=== PATIENT | female | born 1995 | race Caucasian/White ===

== ENCOUNTER 2018-05-18 16:05 | Emergency (ER) | payer BC ==
[2018-05-18] MEDS ORDERED: SODIUM CHLORIDE 0.9% 1,000 ML IV STA ×2 (16:34)
[2018-05-18] MEDS ORDERED: PYRIDOXINE 100 MG/ML 1 ML VIAL IVP STA (16:34)
[2018-05-18 16:59] LABS: Basophils % (A) 0 %; Eosinophils # (A) 0.1 k/uL (0-0.7); Eosinophils % (A) 1 %; HCT 38.2 % (34.0-46.0); HGB 13.1 gm/dL (11.4-16.0); Lymphocytes # (A) 1.4 k/uL (1.0-4.8); Lymphocytes % (A) 13 %; MCH 28.3 pg (25.0-35.0); MCHC 34.3 g/dL (31.0-37.0); MCV 82.5 fL (80.0-100.0); Mean Platelet Volume 7.3; Monocytes # (A) 0.6 k/uL (0-1.0); Monocytes % (A) 5 %; Neutrophils # (A) 8.9 k/uL (1.3-7.7); Neutrophils % (A) 80 %; Platelet Count 297 k/uL (150-450); RBC 4.63 m/uL (3.80-5.40); WBC 11.1 k/uL (3.8-10.6)
--- NOTE | 2018-05-18 17:00 | ED ---
General Adult HPI - General Chief complaint: Nausea/Vomiting/Diarrhea Stated complaint: Vomiting Time Seen by Provider: 05/18/18 16:13 Source: patient, RN notes reviewed, old records reviewed Mode of arrival: ambulatory Limitations: no limitations - History of Present Illness Initial comments: 23-year-old female presents emergency Department chief complaint of vomiting for the past 3 days. She reports that she took a positive test earlier this week. Patient states that she's had no medical Reason that she is . Patient reports is her first . Last menstrual period was in the beginning of March. She denies any fever or chills. Shortness is had some minor left-sided abdominal pain. No vaginal bleeding. She reports that she's had no chest pain, shortness of breath. Normal stools. Parents been normal. She states she feels somewhat lightheaded. - Related Data Previous Rx's Medication Instructions Recorded Cyclobenzaprine [Flexeril] 10 mg PO TID #12 tab 12/31/16 Diazepam [Valium] 2 mg PO BID #8 tab 12/31/16 Ibuprofen [Motrin] 600 mg PO Q6HR PRN #20 tab 12/31/16 Metoclopramide [Reglan] 5 mg PO ACHS #10 tab 05/18/18 [id number]-[id number]-Hmfbf Acid 1 cap PO DAILY #30 cap 05/18/18 [-U Capsule (formulary)] Allergies Allergy/AdvReac Type Severity Reaction Status Date / Time No Known Allergies Allergy Verified 05/18/18 16:12 Review of Systems ROS Statement: Those systems with pertinent positive or pertinent negative responses have been documented in the HPI. ROS Other: All systems not noted in ROS Statement are negative. Past Medical History Past Medical History: No Reported History History of Any Multi-Drug Resistant Organisms: None Reported Past Surgical History: No Surgical Hx Reported Past Psychological History: No Psychological Hx Reported Smoking Status: Never smoker Past Alcohol Use History: None Reported Past Drug Use History: None Reported General Exam - General Exam Comments Initial Comments: Well-appearing 23-year-old female. Alert and oriented. No acute distress. Limitations: no limitations General appearance: alert, in no apparent distress Head exam: Present: atraumatic, normocephalic, normal inspection Eye exam: Present: normal appearance, PERRL, EOMI. Absent: scleral icterus, conjunctival injection, periorbital swelling ENT exam: Present: normal exam, mucous membranes moist Neck exam: Present: normal inspection. Absent: tenderness, meningismus, lymphadenopathy Respiratory exam: Present: normal lung sounds bilaterally. Absent: respiratory distress, wheezes, rales, rhonchi, stridor Cardiovascular Exam: Present: regular rate, normal rhythm, normal heart sounds. Absent: systolic murmur, diastolic murmur, rubs, gallop, clicks GI/Abdominal exam: Present: soft, tenderness (Minimal Left lower quadrant tenderness.), normal bowel sounds. Absent: distended, guarding, rebound, rigid Extremities exam: Present: normal inspection, full ROM, normal capillary refill. Absent: tenderness, pedal edema, joint swelling, calf tenderness Back exam: Present: normal inspection Neurological exam: Present: alert, oriented X3, CN II-XII intact Psychiatric exam: Present: normal affect, normal mood Skin exam: Present: warm, dry, intact, normal color. Absent: rash Course Vital Signs 05/18/18 05/18/18 05/18/18 16:10 17:38 18:54 Temperature 98.3 F 98.5 F Pulse Rate 55 L 80 76 Respiratory 20 18 18 Rate Blood Pressure 137/81 127/70 113/76 O2 Sat by Pulse 98 99 98 Oximetry 05/18/18 19:10 Temperature Pulse Rate 59 L Respiratory 15 Rate Blood Pressure 127/58 O2 Sat by Pulse 98 Oximetry Medical Decision Making - Medical Decision Making 23-year-old female with history of recent diagnosis of presents with 3 days of nausea and vomiting. Patient's hCG level LXV,000. This is consistent with where her last syncope. Ultrasound was completed and shows an IUP of 5 weeks and 6 days. No other, kidney factors. Patient is follow-up positive blood type. Patient's labwork was otherwise unremarkable. The second Patient be discharged with close follow-up with IT SENIOR SOFTWARE ENGINEER JAVA. Discussed and discharge her with prescription for Diclegis and Reglan. All questions answered return parameters were discussed. - Lab Data Result diagrams: 05/18/18 16:34 05/18/18 16:34 Lab Results 05/18/18 05/18/18 05/18/18 Range/Units 16:34 16:34 16:34 WBC 11.1 H (3.8-10.6) k/uL RBC 4.63 (3.80-5.40) m/uL Hgb 13.1 (11.4-16.0) gm/dL Hct 38.2 (34.0-46.0) % MCV 82.5 (80.0-100.0) fL MCH 28.3 (25.0-35.0) pg MCHC 34.3 (31.0-37.0) g/dL RDW 14.0 (11.5-15.5) % Plt Count 297 (150-450) k/uL Neutrophils % 80 % Lymphocytes % 13 % Monocytes % 5 % Eosinophils % 1 % Basophils % 0 % Neutrophils # 8.9 H (1.3-7.7) k/uL Lymphocytes # 1.4 (1.0-4.8) k/uL Monocytes # 0.6 (0-1.0) k/uL Eosinophils # 0.1 (0-0.7) k/uL Basophils # 0.0 (0-0.2) k/uL Sodium 140 (137-145) mmol/L Potassium 4.1 (3.5-5.1) mmol/L Chloride 105 (98-107) mmol/L Carbon Dioxide 22 (22-30) mmol/L Anion Gap 13 mmol/L BUN 9 (7-17) mg/dL Creatinine 0.50 L (0.52-1.04) mg/dL Est GFR (CKD-EPI)AfAm >90 (>60 ml/min/1.73 sqM) Est GFR (CKD-EPI)NonAf >90 (>60 ml/min/1.73 sqM) Glucose 95 (74-99) mg/dL Calcium 9.4 (8.4-10.2) mg/dL Total Bilirubin 0.4 (0.2-1.3) mg/dL AST 25 (14-36) U/L ALT 33 (9-52) U/L Alkaline Phosphatase 72 (38-126) U/L Total Protein 7.2 (6.3-8.2) g/dL Albumin 4.3 (3.5-5.0) g/dL Amylase 34 (30-110) U/L Lipase 53 (23-300) U/L HCG, Quant 45810.3 mIU/mL Urine Color Yellow Urine Appearance Turbid H (Clear) Urine pH 6.0 (5.0-8.0) Ur Specific [place] 1.031 (1.001-1.035) Urine Protein 2+ H (Negative) Urine Glucose (UA) Negative (Negative) Urine Ketones 4+ H (Negative) Urine Blood Moderate H (Negative) Urine Nitrite Negative (Negative) Urine Bilirubin 1+ H (Negative) Urine Urobilinogen 3.0 (<2.0) mg/dL Ur Leukocyte Esterase Large H (Negative) Urine RBC 17 H (0-5) /hpf Urine WBC 19 H (0-5) /hpf Ur Squamous Epith Cells 18 H (0-4) /hpf Amorphous Sediment Rare H (None) /hpf Urine Bacteria Few H (None) /hpf Urine Mucus Many H (None) /hpf Blood Type Blood Type Recheck 05/18/18 Range/Units 18:24 WBC (3.8-10.6) k/uL RBC (3.80-5.40) m/uL Hgb (11.4-16.0) gm/dL Hct (34.0-46.0) % MCV (80.0-100.0) fL MCH (25.0-35.0) pg MCHC (31.0-37.0) g/dL RDW (11.5-15.5) % Plt Count (150-450) k/uL Neutrophils % % Lymphocytes % % Monocytes % % Eosinophils % % Basophils % % Neutrophils # (1.3-7.7) k/uL Lymphocytes # (1.0-4.8) k/uL Monocytes # (0-1.0) k/uL Eosinophils # (0-0.7) k/uL Basophils # (0-0.2) k/uL Sodium (137-145) mmol/L Potassium (3.5-5.1) mmol/L Chloride (98-107) mmol/L Carbon Dioxide (22-30) mmol/L Anion Gap mmol/L BUN (7-17) mg/dL Creatinine (0.52-1.04) mg/dL Est GFR (CKD-EPI)AfAm (>60 ml/min/1.73 sqM) Est GFR (CKD-EPI)NonAf (>60 ml/min/1.73 sqM) Glucose (74-99) mg/dL Calcium (8.4-10.2) mg/dL Total Bilirubin (0.2-1.3) mg/dL AST (14-36) U/L ALT (9-52) U/L Alkaline Phosphatase (38-126) U/L Total Protein (6.3-8.2) g/dL Albumin (3.5-5.0) g/dL Amylase (30-110) U/L Lipase (23-300) U/L HCG, Quant mIU/mL Urine Color Urine Appearance (Clear) Urine pH (5.0-8.0) Ur Specific [place] (1.001-1.035) Urine Protein (Negative) Urine Glucose (UA) (Negative) Urine Ketones (Negative) Urine Blood (Negative) Urine Nitrite (Negative) Urine Bilirubin (Negative) Urine Urobilinogen (<2.0) mg/dL Ur Leukocyte Esterase (Negative) Urine RBC (0-5) /hpf Urine WBC (0-5) /hpf Ur Squamous Epith Cells (0-4) /hpf Amorphous Sediment (None) /hpf Urine Bacteria (None) /hpf Urine Mucus (None) /hpf Blood Type O Positive Blood Type Recheck No - Radiology Data Radiology results: report reviewed Cardiac flicker was observed but cannot be measured. Ultrasound gestational is 5 weeks and 6 days. gait process. Disposition Clinical Impression: Nausea & vomiting, 5 weeks gestation of Disposition: HOME SELF-CARE Condition: Good Instructions: Nausea and Vomiting in (ED) Additional Instructions: Patient should rest, clear liquids. Follow-up with IT SENIOR SOFTWARE ENGINEER JAVA. Return to emergency department if any alarming signs or symptoms occur. Prescriptions: Metoclopramide [Reglan] 5 mg PO ACHS #10 tab Une-[id number]-Oxwjg Acid [-U Capsule (formulary)] 1 cap PO DAILY # 30 cap Is patient prescribed a controlled substance at d/c from ED?: No When asked, does pt state using other controlled substances?: No If prescribed controlled substance>3 days was MAPS reviewed?: No If opioid is for acute pain is fill amount 7 days or less?: No If Rx opioid, was Start Talking consent form obtained?: No Referrals: None,Stated [Primary Care Provider] - 1-2 days Yudy Woods MD [STAFF PHYSICIAN] - 1-2 days Time of Disposition: 20:15
[2018-05-18 17:10] LABS: ALT 33 U/L (9-52); AST 25 U/L (14-36); Albumin 4.3 g/dL (3.5-5.0); Alkaline Phosphatase 72 U/L (38-126); Amylase 34 U/L (30-110); Anion Gap 13 mmol/L; Blood Urea Nitrogen 9 mg/dL (7-17); Calcium 9.4 mg/dL (8.4-10.2); Carbon Dioxide 22 mmol/L (22-30); Chloride 105 mmol/L (98-107); Glucose 95 mg/dL (74-99); Lipase 53 U/L (23-300); Potassium 4.1 mmol/L (3.5-5.1); Sodium 140 mmol/L (137-145); Total Bilirubin 0.4 mg/dL (0.2-1.3); Total Protein 7.2 g/dL (6.3-8.2)
[2018-05-18] MEDS ORDERED: diphenhydrAMINE 50 MG/ML 1 ML VIAL IVP STA (17:47)
[2018-05-18] MEDS ORDERED: METOCLOPRAMIDE 5 MG/ML 2 ML VIAL IVP STA (17:47)
[2018-05-18 17:52] LABS: HCG,Quantitative Serum 65386.3 mIU/mL
[2018-05-18 18:01] LABS: Amorphous Sediment,Urine Rare /hpf; Appearance,Urine Turbid (Clear); Bacteria,Urine Few /hpf; Bilirubin,Urine 1+ (Negative); Blood,Urine Moderate (Negative); Color,Urine Yellow; Glucose,Urine (UA) Negative (Negative); Ketones,Urine 4+ (Negative); Leukocyte Esterase,Urine Large (Negative); Mucus,Urine Many /hpf; Nitrite,Urine Negative (Negative); Protein,Urine 2+ (Negative); RBC,Urine 17 /hpf (0-5); Specific Gravity,Urine 1.031 (1.001-1.035); Squamous Epithelial Cell,Urine 18 /hpf (0-4); WBC,Urine 19 /hpf (0-5)
[2018-05-18 19:46] VITALS: BP 127/58
--- NOTE | 2018-05-18 20:09 | US ---
EXAMINATION TYPE: Transabdominal DATE OF EXAM: 02/15/18 COMPARISON: NONE CLINICAL HISTORY: Pain, spotting, hyperemesis. EXAM PERFORMED: Transvaginal (TV) and Transabdominal (TA) EXAM MEASUREMENTS: GESTATIONAL AGE / DATING Physician Established: Not yet established Dates by LMP: (5 weeks/6 days) EDC: 01/12/19 Dates by First Scan: No previous this is first scan Dates by Current Scan for: (5 weeks/6 days) EDC: 01/12/19 MATERNAL ANATOMY Morbidly obese patient. Technically difficult study. Uterus: 8.2 x 4.1 x 5.3cm Right Ovary: not visualized due to overlying bowel gas/obesity Left Ovary: not visualized due to overlying bowel gas/obesity Post CDS / Adnexa: wnl Presence of free fluid: no GESTATION / SURVEY CRL: (5 weeks/6 days) Yolk Sac (normal less than 6mm): 3mm Heart Rate: unable to measure heart rate, technologist could see motion but could not measure, this i s believed due to patient obesity IUP: yes Date of LMP: 04/07/18 Beta HcG (if available): 65,386 Early IUP. IMPRESSION: Cardiac flicker was observed but could not be measured. The ultrasound gestational age is 5 weeks 6 d ays. No complicating process seen.
[2018-05-18 20:43] VITALS: PULSE 70; RESP 16; TEMP 98.9
== END 2018-05-18 20:40 | disposition home or self-care (01) ==
LOC: EC 16:05
DX: O21.9 Vomiting of pregnancy, unspecified (principal); O99.89 Other specified diseases and conditions complicating pregnancy, childbirth and the puerperium; R10.9 Unspecified abdominal pain; R42 Dizziness and giddiness; Z67.40 Type O blood, Rh positive; Z3A.01 Less than 8 weeks gestation of pregnancy
CPT/HCPCS: 99284; 96374; 96375 ×2; 96361 ×4; 36415; 86900; 86901; 80053; 82150; 83690; 85025; 81001; 84702; 87086; 76801; 76817; J1200; J3415; J2765

== ENCOUNTER 2018-05-28 09:38 | Emergency (ER) | payer BC ==
[2018-05-28 09:42] VITALS: RESP 18
[2018-05-28] MEDS ORDERED: METOCLOPRAMIDE 5 MG/ML 2 ML VIAL IVP STA (09:58)
[2018-05-28] MEDS ORDERED: SODIUM CHLORIDE 0.9% 1,000 ML IV STA (09:58)
[2018-05-28] MEDS ORDERED: FAMOTIDINE 20 MG/2 ML VIAL IV STA (09:58)
--- NOTE | 2018-05-28 10:02 | ED ---
General Adult HPI - General Chief complaint: Nausea/Vomiting/Diarrhea Stated complaint: 7wks / vomiting Time Seen by Provider: 05/28/18 09:47 Source: patient, RN notes reviewed Mode of arrival: ambulatory Limitations: no limitations - History of Present Illness Initial comments: 23-year-old female who is approximately 7 weeks , presented to the emergency room today with a chief complaint of nausea vomiting that started approximate hour half ago. She states she's had 4 episodes of vomiting. She has seen which she believes may be some blood in the emesis. Patient denies any other past history. States she's not on any medications regularly. Patient does admit to burning sensation from the top of his stomach going up to the back or throat. She denies any other complaints or symptoms at this time. Patient denies any recent fever, chills, shortness of breath, chest pain, back pain, numbness or tingling, headaches or visual changes, or any other complaints. - Related Data Previous Rx's Medication Instructions Recorded Cyclobenzaprine [Flexeril] 10 mg PO TID #12 tab 12/31/16 Diazepam [Valium] 2 mg PO BID #8 tab 12/31/16 Ibuprofen [Motrin] 600 mg PO Q6HR PRN #20 tab 12/31/16 Metoclopramide [Reglan] 5 mg PO ACHS #10 tab 05/18/18 Lue-Fnmn-Whdgn Acid 1 cap PO DAILY #30 cap 05/18/18 [-U Capsule (formulary)] Famotidine [Pepcid] 20 mg PO BID #10 tablet 05/28/18 Metoclopramide HCl [Reglan] 10 mg PO Q6HR PRN #5 day 05/28/18 Allergies Allergy/AdvReac Type Severity Reaction Status Date / Time No Known Allergies Allergy Verified 05/28/18 09:42 Review of Systems ROS Statement: Those systems with pertinent positive or pertinent negative responses have been documented in the HPI. ROS Other: All systems not noted in ROS Statement are negative. Past Medical History Past Medical History: No Reported History History of Any Multi-Drug Resistant Organisms: None Reported Past Surgical History: No Surgical Hx Reported Past Psychological History: No Psychological Hx Reported Smoking Status: Never smoker Past Alcohol Use History: None Reported Past Drug Use History: None Reported General Exam - General Exam Comments Initial Comments: General: The patient is awake and alert, in no distress, and does not appear acutely ill. Eye: Pupils are equal, round and reactive to light, extra-ocular movements are intact. No nystagmus. There is normal conjunctiva bilaterally. No signs of icterus. Ears, nose, mouth and throat: There are moist mucous membranes and no oral lesions. Neck: The neck is supple, there is no tenderness or JVD. Cardiovascular: There is a regular rate and rhythm. No murmur, rub or gallop is appreciated. Respiratory: Lungs are clear to auscultation, respirations are non-labored, breath sounds are equal. No wheezes, stridor, rales, or rhonchi. Gastrointestinal: Abdomen soft on palpation. Mild tenderness epigastric. No rebound, guarding, CVA tenderness. Musculoskeletal: Normal ROM, no tenderness. Strength 5/5. Sensation intact. Pulses equal bilaterally 2+. Neurological: A&O x 3. CN II-XII intact, There are no obvious motor or sensory deficits. Coordination appears grossly intact. Speech is normal. Skin: Skin is warm and dry and no rashes or lesions are noted. Psychiatric: Cooperative, appropriate mood & affect, normal judgment. Limitations: no limitations Course Vital Signs 05/28/18 09:39 Temperature 97.9 F Pulse Rate 82 Respiratory 18 Rate Blood Pressure 126/82 O2 Sat by Pulse 100 Oximetry Medical Decision Making - Medical Decision Making Case discussed in detail with attending physician Dr. Chiu. Patient reexamined at this time shows no signs of distress resting comfortably. Patient shows no signs of stress is feeling much better here in emergency room. Abdomen soft nontender. Denies tobacco bleeding or discharge. Patient is approximately 7 Spring. Did have 4 episodes of vomiting. She some blood in the emesis. Patient's labs been reviewed and are unremarkable. Her urinalysis shows possible contamination with 6 white cells urine culture is pending. Patient has no UTI symptoms. Patient does have falls her FURNACE CLERK in 3 days. Patient will be continued on Pepcid, Reglan for the symptoms. She is advised that if any symptoms return or increase or worsen to return here to the emergency room. She states understanding and is in agreement. - Lab Data Result diagrams: 05/28/18 10:16 05/28/18 10:16 Lab Results 05/28/18 05/28/18 05/28/18 Range/Units 10:16 10:16 10:16 WBC (3.8-10.6) k/uL RBC (3.80-5.40) m/uL Hgb (11.4-16.0) gm/dL Hct (34.0-46.0) % MCV (80.0-100.0) fL MCH (25.0-35.0) pg MCHC (31.0-37.0) g/dL RDW (11.5-15.5) % Plt Count (150-450) k/uL Neutrophils % % Lymphocytes % % Monocytes % % Eosinophils % % Basophils % % Neutrophils # (1.3-7.7) k/uL Lymphocytes # (1.0-4.8) k/uL Monocytes # (0-1.0) k/uL Eosinophils # (0-0.7) k/uL Basophils # (0-0.2) k/uL PT 9.7 (9.0-12.0) sec INR 1.0 (<1.2) APTT 23.0 (22.0-30.0) sec Sodium 141 (137-145) mmol/L Potassium 4.0 (3.5-5.1) mmol/L Chloride 107 (98-107) mmol/L Carbon Dioxide 24 (22-30) mmol/L Anion Gap 10 mmol/L BUN 8 (7-17) mg/dL Creatinine 0.57 (0.52-1.04) mg/dL Est GFR (CKD-EPI)AfAm >90 (>60 ml/min/1.73 sqM) Est GFR (CKD-EPI)NonAf >90 (>60 ml/min/1.73 sqM) Glucose 98 (74-99) mg/dL Calcium 9.2 (8.4-10.2) mg/dL Total Bilirubin 0.2 (0.2-1.3) mg/dL AST 28 (14-36) U/L ALT 75 H (9-52) U/L Alkaline Phosphatase 80 (38-126) U/L Total Protein 6.6 (6.3-8.2) g/dL Albumin 3.8 (3.5-5.0) g/dL HCG, Quant 477909.0 mIU/mL Urine Color Yellow Urine Appearance Cloudy H (Clear) Urine pH 6.0 (5.0-8.0) Ur Specific [place] 1.024 (1.001-1.035) Urine Protein Trace H (Negative) Urine Glucose (UA) Negative (Negative) Urine Ketones Negative (Negative) Urine Blood Moderate H (Negative) Urine Nitrite Negative (Negative) Urine Bilirubin Negative (Negative) Urine Urobilinogen <2.0 (<2.0) mg/dL Ur Leukocyte Esterase Large H (Negative) Urine RBC 10 H (0-5) /hpf Urine WBC 6 H (0-5) /hpf Ur Squamous Epith Cells 21 H (0-4) /hpf Urine Mucus Many H (None) /hpf 05/28/18 Range/Units 10:16 WBC 8.9 (3.8-10.6) k/uL RBC 4.35 (3.80-5.40) m/uL Hgb 12.4 (11.4-16.0) gm/dL Hct 36.8 (34.0-46.0) % MCV 84.8 (80.0-100.0) fL MCH 28.6 (25.0-35.0) pg MCHC 33.8 (31.0-37.0) g/dL RDW 14.2 (11.5-15.5) % Plt Count 274 (150-450) k/uL Neutrophils % 69 % Lymphocytes % 23 % Monocytes % 6 % Eosinophils % 1 % Basophils % 0 % Neutrophils # 6.1 (1.3-7.7) k/uL Lymphocytes # 2.1 (1.0-4.8) k/uL Monocytes # 0.5 (0-1.0) k/uL Eosinophils # 0.1 (0-0.7) k/uL Basophils # 0.0 (0-0.2) k/uL PT (9.0-12.0) sec INR (<1.2) APTT (22.0-30.0) sec Sodium (137-145) mmol/L Potassium (3.5-5.1) mmol/L Chloride (98-107) mmol/L Carbon Dioxide (22-30) mmol/L Anion Gap mmol/L BUN (7-17) mg/dL Creatinine (0.52-1.04) mg/dL Est GFR (CKD-EPI)AfAm (>60 ml/min/1.73 sqM) Est GFR (CKD-EPI)NonAf (>60 ml/min/1.73 sqM) Glucose (74-99) mg/dL Calcium (8.4-10.2) mg/dL Total Bilirubin (0.2-1.3) mg/dL AST (14-36) U/L ALT (9-52) U/L Alkaline Phosphatase (38-126) U/L Total Protein (6.3-8.2) g/dL Albumin (3.5-5.0) g/dL HCG, Quant mIU/mL Urine Color Urine Appearance (Clear) Urine pH (5.0-8.0) Ur Specific [place] (1.001-1.035) Urine Protein (Negative) Urine Glucose (UA) (Negative) Urine Ketones (Negative) Urine Blood (Negative) Urine Nitrite (Negative) Urine Bilirubin (Negative) Urine Urobilinogen (<2.0) mg/dL Ur Leukocyte Esterase (Negative) Urine RBC (0-5) /hpf Urine WBC (0-5) /hpf Ur Squamous Epith Cells (0-4) /hpf Urine Mucus (None) /hpf Disposition Clinical Impression: Hyperemesis gravidarum Disposition: HOME SELF-CARE Condition: Good Additional Instructions: Please follow-up with FURNACE CLERK with her scheduled appointment. Please use medications as discussed. Return here to the emergency room if any symptoms increase worsen. Prescriptions: Famotidine [Pepcid] 20 mg PO BID #10 tablet Metoclopramide HCl [Reglan] 10 mg PO Q6HR PRN #5 day PRN Reason: Nausea Is patient prescribed a controlled substance at d/c from ED?: No Referrals: None,Stated [Primary Care Provider] - 1-2 days Yudy Woods MD [STAFF PHYSICIAN] - 1-2 days Time of Disposition: 12:08
[2018-05-28] MEDS ORDERED: diphenhydrAMINE 50 MG/ML 1 ML VIAL IVP STA (10:18)
[2018-05-28 10:27] LABS: Appearance,Urine Cloudy (Clear); Bilirubin,Urine Negative (Negative); Blood,Urine Moderate (Negative); Color,Urine Yellow; Glucose,Urine (UA) Negative (Negative); Ketones,Urine Negative (Negative); Leukocyte Esterase,Urine Large (Negative); Mucus,Urine Many /hpf; Nitrite,Urine Negative (Negative); Protein,Urine Trace (Negative); RBC,Urine 10 /hpf (0-5); Specific Gravity,Urine 1.024 (1.001-1.035); Squamous Epithelial Cell,Urine 21 /hpf (0-4); Urobilinogen,Urine <2.0 mg/dL (<2.0); WBC,Urine 6 /hpf (0-5)
[2018-05-28 10:31] LABS: Basophils % (A) 0 %; Eosinophils # (A) 0.1 k/uL (0-0.7); Eosinophils % (A) 1 %; HCT 36.8 % (34.0-46.0); HGB 12.4 gm/dL (11.4-16.0); Lymphocytes # (A) 2.1 k/uL (1.0-4.8); Lymphocytes % (A) 23 %; MCH 28.6 pg (25.0-35.0); MCHC 33.8 g/dL (31.0-37.0); MCV 84.8 fL (80.0-100.0); Mean Platelet Volume 7.8; Monocytes # (A) 0.5 k/uL (0-1.0); Monocytes % (A) 6 %; Neutrophils # (A) 6.1 k/uL (1.3-7.7); Neutrophils % (A) 69 %; Platelet Count 274 k/uL (150-450); RBC 4.35 m/uL (3.80-5.40); RDW 14.2 % (11.5-15.5); WBC 8.9 k/uL (3.8-10.6)
[2018-05-28 10:33] LABS: Prothrombin Time 9.7 sec (9.0-12.0)
[2018-05-28 10:34] LABS: ALT 75 U/L (9-52); AST 28 U/L (14-36); Albumin 3.8 g/dL (3.5-5.0); Alkaline Phosphatase 80 U/L (38-126); Anion Gap 10 mmol/L; Blood Urea Nitrogen 8 mg/dL (7-17); Calcium 9.2 mg/dL (8.4-10.2); Carbon Dioxide 24 mmol/L (22-30); Chloride 107 mmol/L (98-107); Glucose 98 mg/dL (74-99); Sodium 141 mmol/L (137-145); Total Bilirubin 0.2 mg/dL (0.2-1.3); Total Protein 6.6 g/dL (6.3-8.2)
[2018-05-28 12:16] VITALS: BP 130/61; PULSE 62; TEMP 96.9
== END 2018-05-28 12:16 | disposition home or self-care (01) ==
LOC: EC 09:38
DX: O21.0 Mild hyperemesis gravidarum (principal); O99.611 Diseases of the digestive system complicating pregnancy, first trimester; K92.0 Hematemesis; Z3A.01 Less than 8 weeks gestation of pregnancy
CPT/HCPCS: 36415; 80053; 85025; 85610; 85730; 81001; 84702; 87086; 99284; 96374; 96375 ×2; 96361 ×2; J1200; J2765

== ENCOUNTER 2019-01-08 02:33 | Outpatient (CLI) | payer BC, OTHER ==
[2019-01-08 03:21] VITALS: BP 145/77; PULSE 80; RESP 16; TEMP 96.5
--- NOTE | 2019-01-10 08:36 | P.MSEPDOC ---
Presenting Problems - Arrival Data Date of Arrival on Unit: 01/08/19 Time of Arrival on Unit: 02:33 Mode of Transport: Wheelchair - Complaint OB-Reason for Admission/Chief Complaint: Rule Out SROM Medical History - Information : 1 Para: 0 Term: 0 : 0 Abortions: Spontaneous or Elective: 0 Number of Living Children: 0 - Gestational Age Gestational Age by ANTALIE (wks/days): 39 Weeks and 3 Days Review of Systems - Review of Systems Constitutional: No problems Breast: No problems ENT: No problems Cardiovascular: No problems Respiratory: No problems Gastrointestinal: No problems Genitourinary: No problems Musculoskeletal: No problems Neurological: No problems Skin: No problems Vital Signs - Temperature Temperature: 96.5 F Temperature Source: Temporal Artery Scan - Pulse Right Brachial Pulse Rate: 80 Pulse Assessment Method: Automatic Cuff - Respirations Respiratory Rate: 16 Oxygen Delivery Method: Room Air O2 Sat by Pulse Oximetry: 100 - Blood Pressure Right Arm Blood Pressure: 145/77 Blood Pressure Mean: 99 Blood Pressure Source: Automatic Cuff Medical Screen Scoring (Pre) - Cervical Exam Dilation: 1-3 cm = 1 Membranes: Intact - Uterine Contractions Frequency: N/A Duration: N/A Intensity: N/A - Maternal Vital Signs Maternal Temperature: N/A Maternal Blood Pressure: N/A Signs of Preeclampsia: N/A Maternal Respirations: N/A - Pain Assessment Pain Location and Character: Pelvic Pain Scale Used: Numeric (1 - 10) Pain Intensity: 6 Pain Description: *Acute, Sore Pain Frequency: Intermittent Pain Duration Units: Minutes Pain Behavior: Vocalization - Maternal Trauma Maternal Trauma: N/A - Assessment Baseline FHR: 150 Heart Rate - NICHD Category: Category I (Normal) = 0 NST: Reactive Position: N/A Station: N/A - Total Score Total Score (Pre): 1 - Level of Risk Level of Risk: Low (0-5) Physician Notification (Pre) - Physician Notified Physician Notified Date: 01/08/19 Physician Notified Time: 03:12 Physician/Practitioner Notifed:: Dr. Irving Spoke With: Dr. Irving New Order Received: Yes - Notification Comment Comment: Dr. Irving called and given report on pt in tr. Pt c/o. Vital signs. 2. negative amnisures. Vag exam of 2/60/-2. No contractions noted. Orders recieved to d/c. pt to home. Disposition - Disposition OB Disposition: Discharge to home Discharge Date: 01/08/19 Discharge Time: 03:25 I agree with the RN Medical Screening Exam: Yes Risk & Benefit of care provided described in d/c instruction: No Diagnosis: FALSE LABOR, UNSPECIFIED
== END 2019-01-08 03:24 | disposition home or self-care (01) ==
LOC: FBPOP 02:33
PROVIDERS: ATTEND Obstetrics & Gynecology
DX: O47.9 False labor, unspecified (principal); Z3A.39 39 weeks gestation of pregnancy
CPT/HCPCS: 59025; 84112; 99213

== ENCOUNTER 2019-01-12 06:00 | Inpatient (IN) | payer BC, OTHER ==
[2019-01-12] MEDS: LACTATED RINGERS 1,000 ML IV SCH ×3 (06:20→22:09)
[2019-01-12 06:22] VITALS: BMI 51.8
[2019-01-12] MEDS ORDERED: METHYLERGONOVINE 0.2 MG/ML 1 ML AMP IM PRN (06:23)
[2019-01-12] MEDS ORDERED: LIDOCAINE 0.5% (PF) 5 MG/ML (50 ML SDV) SQ PRN (06:23)
[2019-01-12] MEDS ORDERED: CARBOPROST TROMETHAMINE 250 MCG/ML 1 ML AMP IM PRN (06:23)
[2019-01-12] MEDS ORDERED: OXYTOCIN 10 UNIT/ML 1 ML VIAL IM PRN (06:23)
[2019-01-12] MEDS ORDERED: TERBUTALINE 1 MG/ML VIAL SQ PRN (06:23)
[2019-01-12] MEDS ORDERED: OXYTOCIN 30 UNITS/500 ML NS 30 UNIT in SALINE 1 500ML.BAG IV SCH (06:30)
[2019-01-12 06:34] LABS: Basophils % (A) 0 %; Eosinophils # (A) 0.1 k/uL (0-0.7); Eosinophils % (A) 1 %; HCT 31.8 % (34.0-46.0); HGB 10.7 gm/dL (11.4-16.0); Lymphocytes # (A) 2.2 k/uL (1.0-4.8); Lymphocytes % (A) 20 %; MCH 28.7 pg (25.0-35.0); MCHC 33.7 g/dL (31.0-37.0); MCV 85.2 fL (80.0-100.0); Mean Platelet Volume 7.5; Monocytes # (A) 0.6 k/uL (0-1.0); Monocytes % (A) 5 %; Neutrophils # (A) 7.9 k/uL (1.3-7.7); Neutrophils % (A) 72 %; Platelet Count 273 k/uL (150-450); RBC 3.73 m/uL (3.80-5.40); RDW 13.8 % (11.5-15.5)
--- NOTE | 2019-01-12 07:12 | P.HPOB ---
History of Present Illness H&P Date: 01/12/19 This is a 24-year-old white female 1 para 0 EDC 01/12/2019 at 40 weeks gestation. Patient presents today for induction with favorable cervix. Fetus is been active throughout the . She denies fluid leakage or vaginal bleeding. history is significant for group B strep cultures negative. One-hour Glucola 157, 3 hour GTT within normal limits. Hemoglobin A1c 4.9. Initial urine drug screen positive for cannabinoids, repeat drug screens negative. Blood type O+. Rubella status immune. Urine culture, gonorrhea and chlamydia cultures, hepatitis B surface antigen, HIV testing all negative. Past medical history is significant for anxiety. Past surgical history negative. Current medications Pepcid 20 mg once daily as needed, vitamins daily. ALLERGIES none known. Family history significant for diabetes, breast cancer, hypertension. 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 On exam patient is 5 foot 8 inches, 341 pounds, initial blood pressure 149/85, patient is afebrile. The general physical exam is within normal limits. Chest is clear in all rios. Extremities reveal no edema. Morbid obesity is noted. Cervix is 3 cm dilated, 70% effaced, -2 station, vertex presentation. Artificial amniorrhexis reveals clear fluid. heart rate is in the 140s with accelerations, category 1. Impression: 40 week intrauterine , here for induction of labor. Morbid obesity noted. Otherwise all signs reassuring. Plan: Oxytocin per hospital protocol. Close maternal and surveillance. Analgesic options reviewed with the patient. Anticipate normal spontaneous vaginal delivery. Review of Systems Constitutional: Reports as per HPI Past Medical History Past Medical History: No Reported History Additional Past Medical History / Comment(s): anxiety, "medical marijuana" use History of Any Multi-Drug Resistant Organisms: None Reported Past Surgical History: No Surgical Hx Reported Past Psychological History: Anxiety Smoking Status: Never smoker Past Alcohol Use History: None Reported Past Drug Use History: Marijuana - Past Family History Father Family Medical History: Diabetes Mellitus Mother Family Medical History: Hypertension Medications and Allergies Home Medications Medication Instructions Recorded Confirmed Type No Known Home Medications 01/08/19 01/12/19 History Allergies Allergy/AdvReac Type Severity Reaction Status Date / Time No Known Allergies Allergy Verified 01/12/19 06:13 Exam Vital Signs Temp Pulse Resp BP Pulse Ox 01/12/19 06:16 97.0 F L 78 18 149/85 100 Intake and Output 01/11/19 01/12/19 01/12/19 22:59 06:59 14:59 Other: Weight 154.766 kg See dictation under HPI please Results Result Diagrams: 01/12/19 06:20 Abnormal Lab Results - Last 24 Hours (Table) 01/12/19 Range/Units 06:20 WBC 11.0 H (3.8-10.6) k/uL RBC 3.73 L (3.80-5.40) m/uL Hgb 10.7 L (11.4-16.0) gm/dL Hct 31.8 L (34.0-46.0) % Neutrophils # 7.9 H (1.3-7.7) k/uL Assessment and Plan Assessment: 40 week intrauterine , here for elective induction of labor. Morbid obesity noted. Plan: Oxytocin has been started and will be titrated per hospital protocol. Close maternal and surveillance. Anticipate normal spontaneous vaginal delivery. Analgesic options reviewed. Time with Patient: Less than 30
[2019-01-12] MEDS ORDERED: ROPIVACAINE 100 MG, fentaNYL (PF) 200 MCG in SODIUM CHLORIDE 0.9% 76 ML EPIDURAL ONE (10:26)
[2019-01-12] MEDS ORDERED: CITRIC ACID-SODIUM CITRATE 15 ML CUP PO ONE (17:55)
[2019-01-12] MEDS ORDERED: ceFAZolin 3 GM in SODIUM CHLORIDE 0.9% 100 ML IVPB ONE (18:00)
[2019-01-12] MEDS ORDERED: fentaNYL (PF) 50 MCG/ML 2 ML AMP ONE (18:05)
[2019-01-12] MEDS ORDERED: DEXAMETHASONE SOD PHOS (MDV) 100 MG/10 ML VIAL ONE (18:05)
[2019-01-12] MEDS ORDERED: MORPHINE SULFATE (PF) 0.3 MG/0.3 ML SYR ONE (18:05)
[2019-01-12] MEDS ORDERED: ONDANSETRON 4 MG/2 ML VIAL ONE (18:05)
[2019-01-12] MEDS ORDERED: OXYTOCIN 10 UNIT/ML 1 ML VIAL ONE (18:05)
--- NOTE | 2019-01-12 19:16 | P.OP ---
Date of Procedure: 01/12/19 Preoperative Diagnosis: Arrest of dilatation and descent, 40 weeks gestation, morbid maternal obesity Postoperative Diagnosis: Same, left occiput transverse, nuchal cord 1 Procedure(s) Performed: Primary low transverse section Anesthesia: epidural Surgeon: Yudy Woods Relations Specialist #1: Thea Irving Estimated Blood Loss (ml): 400 IV fluids (ml): 600 Urine output (ml): 100 Pathology: none sent Condition: stable Disposition: PACU Operative Findings: Liveborn female , 3370 g, 7 lbs. 7 oz., left occiput transverse position, nuchal cord 1. Description of Procedure: Patient was judged to have arrest of dilatation at 8 cm, and arrest of descent at -2 station. No cervical change was made over the course of 3-4 hours. After discussion, the decision was made to proceed with primary low transverse section. Benefits and alternatives were all thoroughly explained. Patient is brought back to the operating room where the epidural placed for labor is "topped off". The abdomen is prepped and draped in the usual sterile fashion after vaginal prepping with Betadine is performed. Aviles catheter placed to direct drainage. The appropriate timeout is performed to assure proper patient and procedural identification. The analgesia is checked and noted to be adequate. Left lateral uterine displacement is performed. A low transverse skin incision is made above the pannus. This is carried down through approximately 10-12 cm of subcutaneous tissue. The fascia is ultimately identified, incised, and extended bilaterally with curved Andrew scissors. Peritoneum is next identified and incised, there is no bowel or bladder involvement. The large ring retractor is placed into the abdominal cavity for excellent exposure. The bladder is well from the operative field. A low transverse uterine incision is made with a scalpel. This is extended with blunt dissection. The 's head is delivered in the left occiput transverse position. There is a nuchal cord 1 that is reduced. The patient is officially delivered of a liveborn female infant at 1828 hours. The umbilical cord is doubly clamped and ligated, she is handed to waiting nurses for evaluation where scores of 9 and 9 at one and 5 minutes respectively were given. The placenta is delivered spontaneously, it is inspected and noted to be intact with trivascular cord at 1829 hours. The uterus is then massaged and swept clean with a sterile sponge to avoid any retained products of conception. 3 g of Ancef are given prior to starting the procedure. Oxytocin is now given. The uterine incision is closed in a two-step fashion, first layer running locking with 0 Vicryl, second layer imbricated with 0 Vicryl. Excellent hemostasis is noted. Bilateral tubes and ovaries appear normal to inspection. Bilateral gutters are inspected and cleaned. Urine is noted to be clear in the Aviles catheter tube. The peritoneum was allowed to close by secondary intention. The fascia is closed in a running stitch of 0 Vicryl with over ligation in the midline. The very deep subcutaneous tissue is then generously irrigated and inspected, it is clean and dry. The spaces reduced with 3-0 Vicryl in a running fashion. 4-0 Monocryl stitch is used in a subcuticular manner for final skin closure. Steri-Strips and Mastisol are applied to the wound. Dressing is applied. Total estimated blood loss 400 mL's. Fluid replacement in the OR 600 mL's. Urine 100 mL, concentrated yellow. All sponge needle and enhancement counts are correct at the end of our procedure. Patient is brought back to recovery room in stable condition with an initial blood pressure of 168/80, pulse 90, 100% O2 saturation. Duramorph is placed into the epidural prior to removing the catheter for analgesic purposes. weighs 7 lbs. 7 oz. or 3370 g.
[2019-01-12] MEDS ORDERED: METOCLOPRAMIDE 5 MG/ML 2 ML VIAL IVP PRN (19:17)
[2019-01-12] MEDS ORDERED: ONDANSETRON 4 MG/2 ML VIAL IVP PRN (19:17)
[2019-01-12] MEDS ORDERED: diphenhydrAMINE 25 MG CAP PO PRN (19:17)
[2019-01-12] MEDS ORDERED: diphenhydrAMINE 50 MG CAP PO PRN (19:17)
[2019-01-12] MEDS ORDERED: SIMETHICONE 80 MG CHEWABLE PO PRN (19:17)
[2019-01-12] MEDS ORDERED: ZOLPIDEM 5 MG TAB PO PRN (19:17)
[2019-01-12] MEDS ORDERED: diphenhydrAMINE 50 MG/ML 1 ML VIAL IVP PRN ×2 (19:17)
[2019-01-12] MEDS ORDERED: ACETAMINOPHEN TAB 325 MG TAB PO PRN (19:17)
[2019-01-12] MEDS ORDERED: NALOXONE 0.4 MG/ML 1 ML VIAL IV PRN (19:17)
[2019-01-12] MEDS: KETOROLAC 30 MG/ML 1 ML VIAL IVP PRN (19:37)
[2019-01-12] MEDS: SENNOSIDES-DOCUSATE SODIUM 1 EACH TAB PO SCH (22:09)
[2019-01-13] MEDS: KETOROLAC 30 MG/ML 1 ML VIAL IVP PRN ×3 (02:35→15:56)
[2019-01-13] MEDS: LACTATED RINGERS 1,000 ML IV SCH ×2 (03:48→22:27)
[2019-01-13 05:49] LABS: Basophils % (A) 0 %; Eosinophils # (A) 0.1 k/uL (0-0.7); Eosinophils % (A) 0 %; HCT 29.9 % (34.0-46.0); HGB 9.7 gm/dL (11.4-16.0); Lymphocytes # (A) 1.1 k/uL (1.0-4.8); Lymphocytes % (A) 7 %; MCH 28.2 pg (25.0-35.0); MCHC 32.5 g/dL (31.0-37.0); MCV 86.8 fL (80.0-100.0); Mean Platelet Volume 7.7; Monocytes # (A) 0.9 k/uL (0-1.0); Monocytes % (A) 6 %; Neutrophils # (A) 12.8 k/uL (1.3-7.7); Neutrophils % (A) 85 %; Platelet Count 283 k/uL (150-450); RBC 3.44 m/uL (3.80-5.40); RDW 13.9 % (11.5-15.5)
[2019-01-13] MEDS: SENNOSIDES-DOCUSATE SODIUM 1 EACH TAB PO SCH ×2 (08:46→19:45)
--- NOTE | 2019-01-13 09:57 | P.PN ---
Subjective Progress Note Date: 01/13/19 Principal diagnosis: Postoperative day #1 Positive flatus. Pain well controlled. Minimal lochia rubra. Objective - Vital Signs Vital signs: Vital Signs Temp 97.8 F 01/13/19 04:00 Pulse 54 L 01/13/19 04:00 Resp 18 01/13/19 04:00 BP 133/68 01/13/19 04:00 Pulse Ox 99 01/13/19 04:00 Intake & Output 01/12/19 01/13/19 01/13/19 18:59 06:59 18:59 Intake Total 200 Output Total 450 400 Balance -450 -200 Intake: Oral 200 Output: Urine 450 400 Straight 450 400 - Constitutional General appearance: Present: average body habitus, morbidly obese - EENT Eyes: Present: PERRLA - Neck Neck: Present: normal ROM Thyroid: bilateral: normal size - Respiratory Respiratory: bilateral: CTA - Cardiovascular Rhythm: regular - Gastrointestinal General gastrointestinal: Present: normal bowel sounds - Integumentary Integumentary: Present: normal - Neurologic Neurologic: Present: CNII-XII intact - Musculoskeletal Musculoskeletal: Present: gait normal, strength equal bilaterally - Psychiatric Psychiatric: Present: A&O x's 3, appropriate affect, intact judgment & insight - Labs CBC & Chem 7: 01/13/19 05:38 Labs: Abnormal Lab Results - Last 24 Hours (Table) 01/13/19 Range/Units 05:38 WBC 15.0 H (3.8-10.6) k/uL RBC 3.44 L (3.80-5.40) m/uL Hgb 9.7 L (11.4-16.0) gm/dL Hct 29.9 L (34.0-46.0) % Neutrophils # 12.8 H (1.3-7.7) k/uL Assessment and Plan Assessment: Doing well postoperative day #1 Plan: Advance diet and activity. May DC IV. Likely discharge home tomorrow. Time with Patient: Less than 30
[2019-01-13 16:50] VITALS: RESP 18
[2019-01-13] MEDS: IBUPROFEN 600 MG TAB PO PRN (21:34)
[2019-01-13] MEDS: HYDROcodone/APAP 7.5-325MG 1 EACH TAB PO PRN (22:52)
[2019-01-14] MEDS: IBUPROFEN 600 MG TAB PO PRN ×2 (04:02→11:37)
[2019-01-14] MEDS: HYDROcodone/APAP 7.5-325MG 1 EACH TAB PO PRN ×2 (08:41→15:00)
[2019-01-14] MEDS: SENNOSIDES-DOCUSATE SODIUM 1 EACH TAB PO SCH (09:41)
--- NOTE | 2019-01-14 11:18 | P.DS ---
Providers Date of admission: 01/12/19 06:00 Expected date of discharge: 01/14/19 Attending physician: Yudy Woods Primary care physician: Stated None - Discharge Diagnosis(es) (1) S/P section Current Visit: Yes Status: Acute Hospital Course: The patient is a 24-year-old 1 para 0 admitted at 40-0/7 weeks by good dating parameters. She is admitted for induction of labor with a favorable cervix. Her has been essentially uncomplicated though the patient does have morbid obesity. On labor and delivery, she had Pitocin started followed by artificial rupture of membranes. She made progress and had an epidural catheter placed for analgesia and ultimately progressed to approximately 8 cm at which time she arrested both dilation and descent. She was taken the operating room where she underwent a primary low-transverse section and uncomplicated fashion and delivered a viable 7 lbs. 7 oz. baby girl with Apgars of 9 at 1 minute and 9 at 5 minutes. Her postoperative course has been unremarkable with vital signs remaining stable and her temperature was afebrile throughout. She was deemed stable for discharge on postoperative day #2 and was discharged home to follow-up in the office in 2 weeks for an incision check and 6 weeks routinely. Discharge instructions included calling for any significantly increased bleeding or foul-smelling lochia, significantly increased fever abdominal pain, perineal complaints, breast complaints, incisional complaints, or anything else that concerned her. She is additionally instructed to have nothing in the vagina for at least 6 weeks time to include intercourse and to abstain from any heavy lifting over the same period of time. She was last instructed to do no driving until off of all pain medications or 2 weeks' time, whichever came first. She understood her instructions and agrees to follow up as noted above. Discharge medications included continue vitamins as she has opted to breast-feed. She additionally was provided a prescription for [place] 5/325 mg, 1-2 by mouth every 6 hours when necessary pain, #20 dispensed with no refills. She was otherwise to use [id number] analgesic pain medications as needed. Discharge hemoglobin and hematocrit were 9.7 and 29.9 respectively. Maternal blood type is O+ and rubella status is immune. Procedures: #1. Pitocin induction #2. Artificial rupture of membranes #3. Epidural analgesia #4. Primary low-transverse section Patient Condition at Discharge: Good Plan - Discharge Summary New Discharge Prescriptions: No Action No Known Home Medications Discharge Medication List No Known Home Medications 01/08/19 [History] Follow up Appointment(s)/Referral(s): Yudy Woods MD [STAFF PHYSICIAN] - 2 Weeks Discharge Disposition: HOME SELF-CARE
[2019-01-14 15:57] VITALS: BP 143/71; PULSE 75; TEMP 98.9
== END 2019-01-14 17:50 | disposition home or self-care (01) | DRG 788 ==
LOC: 4FBP 06:00
PROVIDERS: ADMIT Obstetrics & Gynecology; ATTEND Obstetrics & Gynecology
PROC: 3E033VJ Introduction of Other Hormone into Peripheral Vein, Percutaneous Approach (ICD-10-PCS; 2019-01-12)
PROC: 10907ZC Drainage of Amniotic Fluid, Therapeutic from Products of Conception, Via Natural or Artificial Opening (ICD-10-PCS; 2019-01-12)
PROC: 00HU33Z Insertion of Infusion Device into Spinal Canal, Percutaneous Approach (ICD-10-PCS; 2019-01-12)
PROC: 3E0R3BZ Introduction of Anesthetic Agent into Spinal Canal, Percutaneous Approach (ICD-10-PCS; 2019-01-12)
PROC: 10D00Z1 Extraction of Products of Conception, Low, Open Approach (ICD-10-PCS; principal; 2019-01-12 06:00)
DX: O99.214 Obesity complicating childbirth (principal); E66.01 Morbid (severe) obesity due to excess calories; O69.81X0 Labor and delivery complicated by cord around neck, without compression, not applicable or unspecified; O62.0 Primary inadequate contractions; Z3A.40 40 weeks gestation of pregnancy; Z37.0 Single live birth; Z86.59 Personal history of other mental and behavioral disorders; Z83.3 Family history of diabetes mellitus; Z80.3 Family history of malignant neoplasm of breast; Z82.49 Family history of ischemic heart disease and other diseases of the circulatory system
CPT/HCPCS: 85025; 86850; 86900; 86901

== ENCOUNTER 2019-05-29 15:45 | Emergency (ER) | payer BC, OTHER ==
[2019-05-29 15:51] VITALS: BP 136/79; PULSE 64; RESP 18; TEMP 98.2
--- NOTE | 2019-05-29 17:11 | ED ---
General Adult HPI - General Chief complaint: Skin/Abscess/Foreign Body Stated complaint: rash Time Seen by Provider: 05/29/19 15:52 Source: patient Mode of arrival: ambulatory Limitations: no limitations - History of Present Illness Initial comments: 24-year-old female presents emergency Department with a rash. Patient reports she developed a rash approximately 3 days ago around the superior region of the chest near the neck. Patient reports using [id number] cortisone cream with minimal improvement. Patient states the rash is not itchy. Patient denies fever, nausea, vomiting, headache or lymph nodes. Patient denies recent use of antibiotics or any other medication, changes in hygiene products or detergents. Patient states that she is concerned that she will be contagious to her children. - Related Data Previous Rx's Medication Instructions Recorded Clotrimazole/Betamethasone Dip 1 applic TOPICAL TID #1 bottle 05/29/19 [Lotrisone Cream] Allergies Allergy/AdvReac Type Severity Reaction Status Date / Time No Known Allergies Allergy Verified 01/12/19 06:13 Review of Systems ROS Statement: Those systems with pertinent positive or pertinent negative responses have been documented in the HPI. ROS Other: All systems not noted in ROS Statement are negative. Past Medical History Past Medical History: No Reported History Additional Past Medical History / Comment(s): anxiety, "medical marijuana" use History of Any Multi-Drug Resistant Organisms: None Reported Past Surgical History: Section Past Psychological History: Anxiety Smoking Status: Never smoker Past Alcohol Use History: None Reported Past Drug Use History: None Reported - Past Family History Father Family Medical History: Diabetes Mellitus Mother Family Medical History: Hypertension General Exam - General Exam Comments Initial Comments: General: Well-developed well-nourished distress HEENT: Normocephalic/atraumatic, PERLL, pharynx erythema, swallowing well, EAC no erythema, no exudates, TM clear, no cervical lymph nodes Neck: Supple, nontender, trachea midline Chest/Lungs: Normal respirations, no signs of respiratory distress clear to auscultation bilaterally no wheezes, rales, rhonchi Cardiac: Regular rate and rhythm, normal S1-S2, no murmurs rubs or gallops Abdomen/GI: Soft nontender, bowel sounds equal or quadrant x4, no guarding, no rebound no CVA tenderness Musculoskeletal: Nontender, full range of motion, no edema, strength equal bilaterally Skin: Warmth, macular papular rash along the superior aspect of the chest near her neck, no discharge Neurologic: AAO x 3, CN 2-12 intact, Psychiatric: Mood and affect normal, judgment normal Limitations: no limitations Course Vital Signs 05/29/19 15:48 Temperature 98.2 F Pulse Rate 64 Respiratory 18 Rate Blood Pressure 136/79 O2 Sat by Pulse 100 Oximetry Medical Decision Making - Medical Decision Making patient is a 24-year-old female presents emergency Department with a rash. Based on history and physical examination I suspect the rash to be caused by either a fungal or bacterial etiology. Patient will be treated with Lotrisone cream. Patient advised to follow-up with dermatology. Strict return parameters were thoroughly discussed with patient who is understanding and agreeable. Case discussed with physician. Disposition Clinical Impression: Rash Disposition: HOME SELF-CARE Condition: Stable Instructions (If sedation given, give patient instructions): Acute Rash (ED) Additional Instructions: Please take prescribed medication as directed. Please follow with dermatology. Please return to emergency department if symptoms worsen. Prescriptions: Clotrimazole/Betamethasone Dip [Lotrisone Cream] 1 applic TOPICAL TID #1 bottle Is patient prescribed a controlled substance at d/c from ED?: No Referrals: None,Stated [Primary Care Provider] - 1-2 days Time of Disposition: 17:11
== END 2019-05-29 17:17 | disposition home or self-care (01) ==
LOC: EC 15:45
DX: R21 Rash and other nonspecific skin eruption (principal)
CPT/HCPCS: 99282

== ENCOUNTER 2023-06-01 17:13 | Emergency (ER) | payer OTHER ==
[2023-06-01 17:47] VITALS: RESP 18; TEMP 98.7
--- NOTE | 2023-06-01 18:27 | ED ---
General Adult HPI - General Chief complaint: Abdominal Pain Stated complaint: 9 weeks preg/cramping Time Seen by Provider: 06/01/23 18:03 Source: patient, RN notes reviewed Mode of arrival: ambulatory - History of Present Illness Initial comments: 28 year-old female presents to the emergency department for chief complaint of abdominal cramping in . She states that she is 9 weeks . Last menstrual period [id number]. Reports the cramping started last nigh t and has progressively worsened throughout the day. She admits to nausea and vomiting in the am for the past 1 week. Denies diarrhea. Denies vaginal bleeding. Denies fever, chills. Prior abdominal surgeries include . She reports that she has been on amoxicillin since Wednesday. She states she is scheduled to see Dr. Bonilla on June 15. - Related Data Previous Rx's Medication Instructions Recorded Clotrimazole/Betamethasone Dip 1 applic TOPICAL TID #1 bottle 05/29/19 [Lotrisone Cream] Allergies Allergy/AdvReac Type Severity Reaction Status Date / Time No Known Allergies Allergy Verified 06/01/23 17:47 Review of Systems ROS Statement: Those systems with pertinent positive or pertinent negative responses have been documented in the HPI. ROS Other: All systems not noted in ROS Statement are negative. Past Medical History Past Medical History: No Reported History Additional Past Medical History / Comment(s): anxiety, "medical marijuana" use History of Any Multi-Drug Resistant Organisms: None Reported Past Surgical History: Section Past Psychological History: Anxiety Smoking Status: Never smoker Past Alcohol Use History: None Reported Past Drug Use History: None Reported - Past Family History Father Family Medical History: Diabetes Mellitus Mother Family Medical History: Hypertension General Exam Limitations: no limitations General appearance: alert, in no apparent distress Head exam: Present: atraumatic, normocephalic, normal inspection Eye exam: Present: normal appearance, PERRL, EOMI. Absent: scleral icterus, conjunctival injection, periorbital swelling ENT exam: Present: normal exam, mucous membranes moist Neck exam: Present: normal inspection. Absent: tenderness, meningismus, lymphadenopathy Respiratory exam: Present: normal lung sounds bilaterally. Absent: respiratory distress, wheezes, rales, rhonchi, stridor Cardiovascular Exam: Present: regular rate, normal rhythm, normal heart sounds. Absent: systolic murmur, diastolic murmur, rubs, gallop, clicks GI/Abdominal exam: Present: soft, normal bowel sounds. Absent: distended, tenderness, guarding, rebound, rigid Extremities exam: Present: normal inspection, full ROM, normal capillary refill. Absent: tenderness, pedal edema, joint swelling, calf tenderness Back exam: Present: normal inspection Neurological exam: Present: alert, oriented X3 Psychiatric exam: Present: normal affect, normal mood Skin exam: Present: warm, dry, intact, normal color. Absent: rash Course Vital Signs 06/01/23 06/01/23 17:41 21:57 Temperature 98.7 F Pulse Rate 64 67 Respiratory 18 18 Rate Blood Pressure 139/77 121/85 O2 Sat by Pulse 100 100 Oximetry Medical Decision Making - Medical Decision Making Was pt. sent in by a medical professional or institution (, PA, HEAD OF HISTORY, urgent care, hospital, or senior care...) When possible be specific @ -No Did you speak to anyone other than the patient for history (EMS, parent, family, police, friend...)? What history was obtained from this source @ -No Did you review nursing and triage notes (agree or disagree)? Why? @ -I reviewed and agree with nursing and triage notes Were old charts reviewed (outside hosp., previous admission, EMS record, old EKG, old radiological studies, urgent care reports/EKG's, senior care records)? Report findings @ -No old charts were reviewed Differential Diagnosis (chest pain, altered mental status, abdominal pain women, abdominal pain men, vaginal bleeding, weakness, fever, dyspnea, syncope, headac he, dizziness, GI bleed, back pain, seizure, CVA, palpatations, mental health, musculoskeletal)? @ -Differential Abdominal Pain Women: Appendicitis, Cholecystitis, diverticulosis, ischemic bowel, pancreatitis, hepatitis, UTI, gastroenteritis, AAA, incarcerated hernia, bowel obstruction, constipation, inflammatory bowel, hepatitis, peptic ulcer disease, splenic infarction, perforated viscus, vulvitis, ovarian torsion, PID, kidney stone, placenta abruption, this is not meant to be an all-inclusive list EKG interpreted by me (3pts min.). @ -None X-rays interpreted by me (1pt min.). @ -None done CT interpreted by me (1pt min.). @ -None done U/S interpreted by me (1pt. min.). @ -US showed single live intrauterine , heart rate 165 bpm What testing was considered but not performed or refused? (CT, X-rays, U/S, labs)? Why? @ -None What meds were considered but not given or refused? Why? @ -None Did you discuss the management of the patient with other professionals (professionals i.e. Dr., PA, HEAD OF HISTORY, lab, RT, psych nurse, social media campaign manager, electricians top helper, teacher, quarantine officer, case maker)? Give summary @ -No Was smoking cessation discussed for >3mins.? @ -No Was critical care preformed (if so, how long)? @ -No Were there social determinants of health that impacted care today? How? (Homelessness, low income, unemployed, alcoholism, drug addiction, transportation, low edu. Level, literacy, decrease access to med. care, mcc, rehab)? @ -No Was there de-escalation of care discussed even if they declined (Discuss DNR or withdrawal of care, Hospice)? DNR status @ -No What co-morbidities impacted this encounter? (DM, HTN, Smoking, COPD, CAD, Cancer, CVA, ARF, Chemo, Hep., AIDS, mental health diagnosis, sleep apnea, morbid obesity)? @ -None Was patient admitted / discharged? Hospital course, mention meds given and route, prescriptions, significant lab abnormalities, going to OR and other p ertinent info. @ -Discharged. Patient presented to the emergency department for abdominal cramping in . She denies vaginal bleeding, blood type is O+ according to our records. US showed single live intrauterine . CBC within normal limits; CMP showed Na 134, K 4.1, normal amylase and lipase. UA contained 56 squamous epithelial cells will send for culture. Patient also reported sore throat and strep test was negative. Patient given ENT follow up. Patient stable at time of discharge. Case discussed with my attending, Dr. Chiu Undiagnosed new problem with uncertain prognosis? @ -No Drug Therapy requiring intensive monitoring for toxicity (Heparin, Nitro, Insulin, Cardizem)? @ -No Were any procedures done? @ -No Diagnosis/symptom? @ -cramping in Acute, or Chronic, or Acute on Chronic? @ -acute Uncomplicated (without systemic symptoms) or Complicated (systemic symptoms)? @ -uncomplicaated Side effects of treatment? @ -No Exacerbation, Progression, or Severe Exacerbation? @ -No Poses a threat to life or bodily function? How? (Chest pain, USA, CA, pneumonia, PE, COPD, DKA, ARF, appy, cholecystitis, CVA, Diverticulitis, Homicidal, Suicidal, threat to staff... and all critical care pts) @ -No - Lab Data Result diagrams: 06/01/23 18:33 06/01/23 18:33 Lab Results 06/01/23 06/01/23 06/01/23 Range/Units 18:33 18:33 18:33 WBC 8.6 (3.8-10.6) k/uL RBC 4.15 (3.80-5.40) m/uL Hgb 12.1 (11.4-16.0) gm/dL Hct 35.9 (34.0-46.0) % MCV 86.3 (80.0-100.0) fL MCH 29.1 (25.0-35.0) pg MCHC 33.7 (31.0-37.0) g/dL RDW 13.5 (11.5-15.5) % Plt Count 246 (150-450) k/uL MPV 8.5 Neutrophils % 72 % Lymphocytes % 20 % Monocytes % 6 % Eosinophils % 1 % Basophils % 0 % Neutrophils # 6.2 (1.3-7.7) k/uL Lymphocytes # 1.7 (1.0-4.8) k/uL Monocytes # 0.5 (0-1.0) k/uL Eosinophils # 0.1 (0-0.7) k/uL Basophils # 0.0 (0-0.2) k/uL Sodium 134 L (137-145) mmol/L Potassium 4.1 (3.5-5.1) mmol/L Chloride 105 (98-107) mmol/L Carbon Dioxide 23 (22-30) mmol/L Anion Gap 6 mmol/L BUN 6 L (7-17) mg/dL Creatinine 0.48 L (0.52-1.04) mg/dL Est GFR (CKD-EPI)AfAm >90 (>60 ml/min/1.73 sqM) Est GFR (CKD-EPI)NonAf >90 (>60 ml/min/1.73 sqM) Glucose 84 (74-99) mg/dL Calcium 8.9 (8.4-10.2) mg/dL Total Bilirubin 0.6 (0.2-1.3) mg/dL AST 36 (14-36) U/L ALT 49 H (4-34) U/L Alkaline Phosphatase 80 (38-126) U/L Total Protein 6.9 (6.3-8.2) g/dL Albumin 3.9 (3.5-5.0) g/dL Amylase 43 (30-110) U/L Lipase 79 (23-300) U/L HCG, Quant 726041.0 mIU/mL Urine Color Urine Appearance (Clear) Urine pH (5.0-8.0) Ur Specific [place] (1.001-1.035) Urine Protein (Negative) Urine Glucose (UA) (Negative) Urine Ketones (Negative) Urine Blood (Negative) Urine Nitrite (Negative) Urine Bilirubin (Negative) Urine Urobilinogen (<2.0) mg/dL Ur Leukocyte Esterase (Negative) Urine RBC (0-5) /hpf Urine WBC (0-5) /hpf Ur Squamous Epith Cells (0-4) /hpf Urine Bacteria (None) /hpf Urine Mucus (None) /hpf Group A Strep (PCR) NOT DETECTED (Not Detectd) 06/01/23 Range/Units 18:33 WBC (3.8-10.6) k/uL RBC (3.80-5.40) m/uL Hgb (11.4-16.0) gm/dL Hct (34.0-46.0) % MCV (80.0-100.0) fL MCH (25.0-35.0) pg MCHC (31.0-37.0) g/dL RDW (11.5-15.5) % Plt Count (150-450) k/uL MPV Neutrophils % % Lymphocytes % % Monocytes % % Eosinophils % % Basophils % % Neutrophils # (1.3-7.7) k/uL Lymphocytes # (1.0-4.8) k/uL Monocytes # (0-1.0) k/uL Eosinophils # (0-0.7) k/uL Basophils # (0-0.2) k/uL Sodium (137-145) mmol/L Potassium (3.5-5.1) mmol/L Chloride (98-107) mmol/L Carbon Dioxide (22-30) mmol/L Anion Gap mmol/L BUN (7-17) mg/dL Creatinine (0.52-1.04) mg/dL Est GFR (CKD-EPI)AfAm (>60 ml/min/1.73 sqM) Est GFR (CKD-EPI)NonAf (>60 ml/min/1.73 sqM) Glucose (74-99) mg/dL Calcium (8.4-10.2) mg/dL Total Bilirubin (0.2-1.3) mg/dL AST (14-36) U/L ALT (4-34) U/L Alkaline Phosphatase (38-126) U/L Total Protein (6.3-8.2) g/dL Albumin (3.5-5.0) g/dL Amylase (30-110) U/L Lipase (23-300) U/L HCG, Quant mIU/mL Urine Color Yellow Urine Appearance Turbid H (Clear) Urine pH 6.0 (5.0-8.0) Ur Specific [place] 1.029 (1.001-1.035) Urine Protein 1+ H (Negative) Urine Glucose (UA) Negative (Negative) Urine Ketones 3+ H (Negative) Urine Blood Moderate H (Negative) Urine Nitrite Negative (Negative) Urine Bilirubin Negative (Negative) Urine Urobilinogen 2.0 (<2.0) mg/dL Ur Leukocyte Esterase Large H (Negative) Urine RBC 22 H (0-5) /hpf Urine WBC 80 H (0-5) /hpf Ur Squamous Epith Cells 56 H (0-4) /hpf Urine Bacteria Many H (None) /hpf Urine Mucus Many H (None) /hpf Group A Strep (PCR) (Not Detectd) Disposition Clinical Impression: Abdominal cramping affecting Disposition: HOME SELF-CARE Condition: Stable Additional Instructions: Please follow up with your OB as scheduled. Return to the emergency department for new or worsening symptoms. Is patient prescribed a controlled substance at d/c from ED?: No Referrals: Patricia Wade [Primary Care Provider] - 1-2 days Ted Dougherty MD [STAFF PHYSICIAN] - 1-2 days Time of Disposition: 21:35
[2023-06-01 19:01] LABS: Basophils % (A) 0 %; Eosinophils # (A) 0.1 k/uL (0-0.7); Eosinophils % (A) 1 %; HCT 35.9 % (34.0-46.0); HGB 12.1 gm/dL (11.4-16.0); Lymphocytes # (A) 1.7 k/uL (1.0-4.8); Lymphocytes % (A) 20 %; MCH 29.1 pg (25.0-35.0); MCHC 33.7 g/dL (31.0-37.0); MCV 86.3 fL (80.0-100.0); Mean Platelet Volume 8.5; Monocytes # (A) 0.5 k/uL (0-1.0); Monocytes % (A) 6 %; Neutrophils # (A) 6.2 k/uL (1.3-7.7); Neutrophils % (A) 72 %; Platelet Count 246 k/uL (150-450); RBC 4.15 m/uL (3.80-5.40); RDW 13.5 % (11.5-15.5); WBC 8.6 k/uL (3.8-10.6)
[2023-06-01 19:18] LABS: ALT 49 U/L (4-34); AST 36 U/L (14-36); African American GFR (CKD) >90 (>60 ml/min/1.73 sqM); Albumin 3.9 g/dL (3.5-5.0); Alkaline Phosphatase 80 U/L (38-126); Amylase 43 U/L (30-110); Anion Gap 6 mmol/L; Blood Urea Nitrogen 6 mg/dL (7-17); Calcium 8.9 mg/dL (8.4-10.2); Carbon Dioxide 23 mmol/L (22-30); Chloride 105 mmol/L (98-107); Glucose 84 mg/dL (74-99); Lipase 79 U/L (23-300); Non-African American GFR(CKD) >90 (>60 ml/min/1.73 sqM); Potassium 4.1 mmol/L (3.5-5.1); Sodium 134 mmol/L (137-145); Total Bilirubin 0.6 mg/dL (0.2-1.3); Total Protein 6.9 g/dL (6.3-8.2)
[2023-06-01 19:41] LABS: Appearance,Urine Turbid (Clear); Bacteria,Urine Many /hpf; Bilirubin,Urine Negative (Negative); Blood,Urine Moderate (Negative); Color,Urine Yellow; Glucose,Urine (UA) Negative (Negative); Ketones,Urine 3+ (Negative); Leukocyte Esterase,Urine Large (Negative); Mucus,Urine Many /hpf; Nitrite,Urine Negative (Negative); Protein,Urine 1+ (Negative); RBC,Urine 22 /hpf (0-5); Specific Gravity,Urine 1.029 (1.001-1.035); Squamous Epithelial Cell,Urine 56 /hpf (0-4); WBC,Urine 80 /hpf (0-5)
--- NOTE | 2023-06-01 20:34 | US ---
EXAMINATION TYPE: Transabdominal DATE OF EXAM: 06/01/2023 7:09 PM COMPARISON: NONE CLINICAL INDICATION: Female, 28 years old with history of abd cramping; cramping since last night EXAM PERFORMED: Transabdominal (TA) EXAM MEASUREMENTS: GESTATIONAL AGE / DATING Physician Established: (9 weeks/0 days) EDC: 01/04/24 Dates by LMP: 03/29/23 (9 weeks/1 days) EDC: 01/03/24 Dates by First Scan: No previous this is first scan Dates by Current Scan for: (9 weeks/1 days) EDC: 01/03/24 MATERNAL ANATOMY Uterus: 10.0 x 6.1 x 5.1cm Right Ovary: 2.9 x 1.8 x 1.5cm Left Ovary: 3.4 x 2.0 x 2.1cm Post CDS / Adnexa: wnl Presence of free fluid: No Presence of corpus luteal cyst: Cysts seen in bilateral ovaries Presence of subchorionic bleed: No GESTATION / SURVEY CRL: 2.42cm (9 weeks/1 days) Yolk Sac (normal less than 6mm): 3.0mm Heart Rate: 165 bpm Rhythm: Normal IUP: Viable IUP Date of LMP: 03/29/23 Beta HcG (if available): Not available at this time IMPRESSION: Single live intrauterine gestation with calculated gestational age of 9 weeks and 1 day. This is conc ordant with dates by LMP.
[2023-06-01 21:58] VITALS: BP 121/85; PULSE 67
== END 2023-06-01 21:58 | disposition home or self-care (01) ==
LOC: EC 17:13
DX: O26.891 Other specified pregnancy related conditions, first trimester (principal); R10.9 Unspecified abdominal pain; Z86.59 Personal history of other mental and behavioral disorders; Z3A.09 9 weeks gestation of pregnancy
CPT/HCPCS: 36415; 76801; 80053; 81001; 82150; 83690; 84702; 85025; 87086; 87651; 99284

== ENCOUNTER 2023-12-01 13:48 | Outpatient (CLI) | payer OTHER ==
[2023-12-01 15:24] VITALS: BP 131/90; PULSE 79; RESP 16; TEMP 96.2
== END 2023-12-01 15:10 | disposition home or self-care (01) ==
LOC: FBPOP 13:48
PROVIDERS: ATTEND Obstetrics & Gynecology
DX: O82 Encounter for cesarean delivery without indication (principal); O34.219 Maternal care for unspecified type scar from previous cesarean delivery; Z3A.39 39 weeks gestation of pregnancy
CPT/HCPCS: 59025; 84112

== ENCOUNTER 2023-12-09 09:34 | Outpatient (CLI) | payer OTHER ==
[2023-12-09 10:27] LABS: Basophils % (A) 0 %; Eosinophils # (A) 0.1 k/uL (0-0.7); Eosinophils % (A) 1 %; HCT 28.8 % (34.0-46.0); HGB 9.9 gm/dL (11.4-16.0); Lymphocytes # (A) 1.5 k/uL (1.0-4.8); Lymphocytes % (A) 20 %; MCH 30.2 pg (25.0-35.0); MCHC 34.5 g/dL (31.0-37.0); MCV 87.6 fL (80.0-100.0); Mean Platelet Volume 9.1; Monocytes # (A) 0.5 k/uL (0-1.0); Monocytes % (A) 6 %; Neutrophils # (A) 5.4 k/uL (1.3-7.7); Neutrophils % (A) 71 %; Platelet Count 231 k/uL (150-450); RBC 3.29 m/uL (3.80-5.40); RDW 13.7 % (11.5-15.5); WBC 7.5 k/uL (3.8-10.6)
[2023-12-09 10:42] LABS: Uric Acid 4.9 mg/dL (3.7-7.4)
[2023-12-09 11:39] LABS: Appearance,Urine Clear (Clear); Bilirubin,Urine Negative (Negative); Blood,Urine Negative (Negative); Color,Urine Yellow; Glucose,Urine (UA) Negative (Negative); Ketones,Urine Trace (Negative); Leukocyte Esterase,Urine Small (Negative); Mucus,Urine Many /hpf; Nitrite,Urine Negative (Negative); Protein,Urine 1+ (Negative); RBC,Urine <1 /hpf (0-5); Specific Gravity,Urine 1.022 (1.001-1.035); Squamous Epithelial Cell,Urine 1 /hpf (0-4); WBC,Urine 3 /hpf (0-5)
[2023-12-09 13:00] VITALS: BP 136/64; PULSE 68; RESP 18; TEMP 96.7
== END 2023-12-09 12:04 | disposition home or self-care (01) ==
LOC: FBPOP 09:34
PROVIDERS: ATTEND Obstetrics & Gynecology
DX: O13.3 Gestational [pregnancy-induced] hypertension without significant proteinuria, third trimester (principal); Z3A.36 36 weeks gestation of pregnancy
CPT/HCPCS: 59025; 83615; 84450; 84460; 84550; 85025; 81001; G0463; 99215

== ENCOUNTER 2023-12-29 10:00 | Inpatient (IN) | payer BC, OTHER ==
[2023-12-28 16:14] VITALS: BMI 47.9
[2023-12-29] MEDS: LACTATED RINGERS 1,000 ML IV ONE (10:20)
[2023-12-29] MEDS ORDERED: METHYLERGONOVINE 0.2 MG/ML 1 ML AMP IM PRN (10:23)
[2023-12-29] MEDS ORDERED: OXYTOCIN 10 UNIT/ML 1 ML VIAL IM PRN (10:23)
[2023-12-29] MEDS ORDERED: CARBOPROST TROMETHAMINE 250 MCG/ML 1 ML AMP IM PRN (10:23)
[2023-12-29] MEDS ORDERED: TRANEXAMIC 1,000 MG/100ML-NACL 1,000 MG in EMPTY BAG 1 BAG IV PRN (10:23)
[2023-12-29] MEDS ORDERED: miSOPROStoL 200 MCG TAB PO PRN (10:23)
[2023-12-29 10:44] LABS: Basophils % (A) 0 %; Eosinophils # (A) 0.1 k/uL (0-0.7); Eosinophils % (A) 1 %; HCT 30.3 % (34.0-46.0); HGB 10.4 gm/dL (11.4-16.0); Lymphocytes # (A) 1.4 k/uL (1.0-4.8); Lymphocytes % (A) 17 %; MCH 29.7 pg (25.0-35.0); MCHC 34.4 g/dL (31.0-37.0); MCV 86.2 fL (80.0-100.0); Monocytes # (A) 0.5 k/uL (0-1.0); Monocytes % (A) 6 %; Neutrophils # (A) 6.4 k/uL (1.3-7.7); Neutrophils % (A) 75 %; Platelet Count 229 k/uL (150-450); RBC 3.51 m/uL (3.80-5.40); RDW 13.8 % (11.5-15.5); WBC 8.5 k/uL (3.8-10.6)
[2023-12-29] MEDS: LACTATED RINGERS 1,000 ML IV SCH (11:01)
--- NOTE | 2023-12-29 12:14 | P.HPOB ---
History of Present Illness H&P Date: 12/29/23 Chief Complaint: 39 and one sevenths weeks, previous section, reque sting repeat Patient is a 28-year-old 3 para 1011 admitted at 39 and one sevenths weeks as established by last menstrual period and confirmed by seven-week ultrasound. She is admitted for repeat low transverse section having had a previous section and declining vaginal trial of labor. Her has been complicated only by a late third trimester finding of polyhydramnios for which she has reassuring testing on a weekly basis. On labor and delivery, all signs reassuring with a category 1 heart rate tracing. Group B strep status is negative. Obstetrical history: 3 para 1011 with 1 term delivery and one early miscarriage. Current statistics are listed in history present illness. EDC of 01/04/2024 was established by last menstrual period and confirmed by seven-week ultrasound. Laboratory workup demonstrates a blood type of O+ with a negative antibody screen. Rubella status is immune. The remainder of the laboratory workup was within normal limits. Early Glucola was normal while second trimester Glucola was elevated and we have no reported follow three-hour glucose tolerance test in the chart there was likely performed and negative. Group B strep status is negative. Gynecologic history: Unremarkable with no history of any infections to include STDs. Review of Systems Review of systems is confined to history of present illness. Past Medical History Past Medical History: No Reported History Additional Past Medical History / Comment(s): anxiety, "medical marijuana" use History of Any Multi-Drug Resistant Organisms: None Reported Past Surgical History: Section Past Anesthesia/Blood Transfusion Reactions: No Reported Reaction Past Psychological History: Anxiety Additional Psychological History / Comment(s): NO MEDS NEEDED AT THIS TIME Smoking Status: Never smoker Past Alcohol Use History: None Reported Past Drug Use History: None Reported - Past Family History Father Family Medical History: Cancer, Diabetes Mellitus Mother Family Medical History: Hypertension Medications and Allergies Home Medications Medication Instructions Recorded Confirmed Type Vit No.179/Iron/Folic 1 tab PO DAILY 12/01/23 12/29/23 History [ Tablet] Allergies Allergy/AdvReac Type Severity Reaction Status Date / Time No Known Allergies Allergy Verified 12/29/23 10:21 Exam Vital Signs Temp Pulse Resp BP Pulse Ox 12/29/23 10:21 97.6 F 64 18 138/79 100 Intake and Output 12/28/23 12/29/23 12/29/23 22:59 06:59 14:59 Other: Weight 142.882 kg 142.882 kg In general, this is a morbidly obese white female in no acute distress. Her heart has a regular rhythm and rate without murmur. Her lungs clear to auscultation bilaterally in all rios. Her abdomen is obese, nondistended, gravid, has normal active bowel sounds, soft, nontender, and without any palpable masses aside from uterine fundus. Her extremities are without any cyanosis, clubbing, or significant edema and are nontender to palpation bilaterally. Digital cervical examination is deferred. Results Result Diagrams: 12/29/23 10:25 Abnormal Lab Results - Last 24 Hours (Table) 12/29/23 Range/Units 10:25 RBC 3.51 L (3.80-5.40) m/uL Hgb 10.4 L (11.4-16.0) gm/dL Hct 30.3 L (34.0-46.0) % Assessment and Plan (1) Previous section Current Visit: Yes Status: Acute Code(s): Z98.891 - HISTORY OF UTERINE SCAR FROM PREVIOUS SURGERY SNOMED Code(s): 312288581 (2) Polyhydramnios Current Visit: Yes Status: Acute Code(s): O40.9XX0 - POLYHYDRAMNIOS, UNSP TRIMESTER, NOT APPLICABLE OR UNSP SNOMED Code(s): 01857795 (3) Term Current Visit: Yes Status: Acute Code(s): Z34.80 - ENCOUNTER FOR SUPRVSN OF NORMAL , UNSP TRIMESTER SNOMED Code(s): 65021606 Plan: The patient is admitted for repeat low transverse section. The risks and complications of the procedure been thoroughly discussed and she has understood and agreed to proceed.
[2023-12-29] MEDS: ceFAZolin 3 GM in SODIUM CHLORIDE 0.9% 100 ML IVPB ONE (12:29)
[2023-12-29] MEDS: CITRIC ACID-SODIUM CITRATE 15 ML CUP PO ONE (12:29)
[2023-12-29] MEDS ORDERED: NALBUPHINE 10 MG/ML (10 ML MDV) ONE (12:30)
[2023-12-29] MEDS ORDERED: KETOROLAC 15 MG/ML 1 ML VIAL ONE (12:30)
[2023-12-29] MEDS ORDERED: OXYTOCIN 30 UNITS/500 ML NS BAG IV ONE (12:30)
[2023-12-29] MEDS ORDERED: ONDANSETRON 4 MG/2 ML VIAL ONE (12:30)
[2023-12-29] MEDS ORDERED: PHENYLEPHRINE-0.9% NACL SYG 1,000 MCG/10 ML SYRINGE ONE (12:30)
[2023-12-29] MEDS ORDERED: MORPHINE SULFATE (PF) 0.3 MG/0.3 ML SYR ONE (12:30)
[2023-12-29] MEDS ORDERED: NALOXONE 0.4 MG/ML 1 ML VIAL IV PRN (13:28)
[2023-12-29] MEDS ORDERED: NALBUPHINE 10 MG/ML (10 ML MDV) IV PRN (13:28)
[2023-12-29] MEDS ORDERED: diphenhydrAMINE 50 MG/ML 1 ML VIAL IVP PRN ×2 (14:03)
[2023-12-29] MEDS ORDERED: ZOLPIDEM 5 MG TAB PO PRN (14:03)
[2023-12-29] MEDS ORDERED: LANOLIN CREAM 5 GM TUBE TOPICAL PRN (14:03)
[2023-12-29] MEDS ORDERED: METOCLOPRAMIDE 5 MG/ML 2 ML VIAL IVP PRN (14:03)
[2023-12-29] MEDS ORDERED: diphenhydrAMINE 25 MG CAP PO PRN (14:03)
[2023-12-29] MEDS ORDERED: ONDANSETRON 4 MG/2 ML VIAL IVP PRN (14:03)
[2023-12-29] MEDS ORDERED: SIMETHICONE 80 MG CHEWABLE PO PRN (14:03)
[2023-12-29] MEDS ORDERED: diphenhydrAMINE 50 MG CAP PO PRN (14:03)
--- NOTE | 2023-12-29 14:11 | P.OP ---
Date of Procedure: 12/29/23 Preoperative Diagnosis: #1. 39 and one sevenths weeks intrauterine , previous section #2. Polyhydramnios Postoperative Diagnosis: Same Procedure(s) Performed: #1. Repeat low transverse section Anesthesia: spinal Surgeon: Harsha Bonilla Toolroom Machinist #1: Yaritza Borrego Estimated Blood Loss (ml): 425 IV fluids (ml): 700 Urine output (ml): 300 Pathology: none sent Condition: stable Disposition: floor Operative Findings: The patient was taken the operating room where she was delivered by repeat low transverse section of a viable 7 lbs. 15 oz. baby girl in the vertex pr esentation. The placenta was delivered manually, intact, and grossly normal with a grossly normal three-vessel cord. The uterus, tubes, and ovaries were entirely normal to inspection. There was minimal scarring at the level of the fascia but some scarring noted above between the rectus muscles in the midline. The bladder was significantly distal to the intended site of incision was left intact and clear urine was noted throughout the case. Description of Procedure: The patient was prepped and draped in usual fashion after spinal anesthesia was administered by the anesthesiologist. Prior to prepping, the pannus retractor was utilized. The decision was made the incision was going to be necessary as the previous incision was significantly higher, the anatomy likely having significantly changed since her last delivery. The patient was then prepped and draped in usual fashion. A Pfannenstiel incision was made below the previous incision and extended into the abdominal cavity with minimal difficulty. There was a little bit of scarring at the level of the rectus muscles which was not difficult to manage. The bladder peritoneum was significant a distal to the intended site of incision. Anaphylaxis self-retaining retractor was placed. An incision was made in the transverse plane of the lower uterine segment to enter the uterus at which time significant amount of clear fluid was noted. The incision was extended in both directions using the bandage scissors. The head was delivered up and through the incision where the nose and mouth were t horoughly suctioned. The was delivered onto the field where the cord was doubly clamped, cut, and the infant passed resuscitative measures with weight and Apgars as noted above. A segment of cord was doubly clamped, cut, and set aside should cord gases become necessary. The placenta was delivered manually, intact, and grossly normal with a grossly normal three-vessel cord. The uterus was exteriorized and the interior cavity of the uterus swept of any remaining placental or membranous fragments. The margins of the uterine incision were grasped with Davison clamps and the incision closed in 2 layers. The first layer was a running locking stitch of 0 chromic catgut followed by a running imbricating stitch of 0 chromic catgut, each from margin to margin. The posterior cul-de-sac was suctioned with a guard and the uterine and ovarian findings are normal as noted above. The uterus was replaced within the abdominal cavity and the incision reexamined. One point of bleeding at the right angle was made hemostatic with a single [id number]-gr-[id number] stitch of 0 chromic catgut. Hemostasis was otherwise excellent. The parietal peritoneum was loosely reapproximated in the layer of muscles examined and made hemostatic with the Bovie. The fascia was closed with a single running stitch of 0 Vicryl from margin to margin. The subcutaneous tissues were irrigated, made hemostatic with the Bovie, and then reapproximated with a running stitch of 30 plain catgut. The skin was reapproximated with a running subcuticular stitch of 4-0 Vicryl followed by half-inch Steri-Strips placed with Mastisol. Assessment a blood loss for the case was approximate 425 mL. There were no complications. All sponge, instrument, needle counts were correct. The patient tolerated the procedure well and proceeded to the recovery room in stable condition. Both mother and are resting comfortably in recovery.
[2023-12-29] MEDS: OXYTOCIN 30 UNITS/500 ML NS 30 UNIT in SALINE 1 500ML.BAG IV SCH (17:28)
[2023-12-29] MEDS: SENNOSIDES-DOCUSATE SODIUM 1 EACH TAB PO SCH (19:29)
[2023-12-29] MEDS: KETOROLAC 15 MG/ML 1 ML VIAL IVP PRN (19:30)
[2023-12-29] MEDS: ACETAMINOPHEN TAB 500 MG TAB PO SCH (21:32)
[2023-12-29] MEDS: IBUPROFEN 600 MG TAB PO SCH (21:34)
[2023-12-30 07:54] LABS: Basophils % (A) 0 %; Eosinophils # (A) 0.1 k/uL (0-0.7); Eosinophils % (A) 1 %; HCT 24.5 % (34.0-46.0); Lymphocytes # (A) 1.5 k/uL (1.0-4.8); Lymphocytes % (A) 17 %; MCH 30.3 pg (25.0-35.0); MCHC 34.7 g/dL (31.0-37.0); MCV 87.4 fL (80.0-100.0); Mean Platelet Volume 9.2; Monocytes # (A) 0.7 k/uL (0-1.0); Monocytes % (A) 7 %; Neutrophils # (A) 6.4 k/uL (1.3-7.7); Neutrophils % (A) 73 %; Platelet Count 199 k/uL (150-450); RBC 2.81 m/uL (3.80-5.40); RDW 13.7 % (11.5-15.5); WBC 8.8 k/uL (3.8-10.6)
[2023-12-30 08:00] LABS: HGB 8.5 gm/dL (11.4-16.0)
--- NOTE | 2023-12-30 08:27 | P.PN ---
Progress Note - Text Progress Note Date: 12/30/23 Postoperative day 1 status post section under spinal anesthesia, and intrathecal morphine given for postoperative analgesia, patient doing well, there is no anesthesia related complications, Patient had no headache, vital signs stable , Assessment and plan= postop day 1 status post , doing well there is no anesthesia related complication.
--- NOTE | 2023-12-30 08:38 | P.PNOBGPC ---
Subjective - Subjective Patient reports: Reports appetite normal, Reports voiding normally, Reports pain well controlled, Reports ambulating normally : doing well Objective - Vital Signs Latest vital signs: Vital Signs Temp Pulse Resp BP Pulse Ox 12/30/23 08:00 98.0 F 52 L 16 131/79 99 12/30/23 00:00 98.4 F 68 18 140/75 99 12/29/23 18:28 99 12/29/23 17:30 16 12/29/23 16:28 98.1 F 61 16 155/79 12/29/23 15:49 98.5 F 66 16 133/55 12/29/23 15:34 16 12/29/23 15:19 98.4 F 61 16 134/66 12/29/23 15:04 16 134/71 12/29/23 14:49 98.2 F 51 L 16 131/61 12/29/23 14:34 98.1 F 62 16 158/72 12/29/23 14:28 98.0 F 58 L 16 133/62 99 12/29/23 14:19 98.2 F 53 L 16 141/65 12/29/23 14:04 98.1 F 54 L 16 134/72 12/29/23 13:49 97.2 F L 52 L 16 137/63 12/29/23 13:28 98.5 F 62 16 135/62 100 12/29/23 10:21 97.6 F 64 18 138/79 100 Intake and Output 12/29/23 12/30/23 12/30/23 22:59 06:59 14:59 Intake Total 200 400 300 Output Total 1525 300 Balance -1325 100 300 Intake: IV 400 Oral 200 300 Output: Urine 1000 300 Straight 400 Output, Quantitative 525 Blood Loss Other: # Voids 1 - Exam Extremities: Present: normal Abdomen: Present: normal appearance, soft. Absent: distention, tenderness Incision: Present: normal, dry, intact Uterus: Present: firm (The uterine fundus is tonic and minimally tender below the umbilicus.) - Labs Labs: Abnormal Lab Results - Last 24 Hours (Table) 12/29/23 12/30/23 Range/Units 10:25 06:54 RBC 3.51 L 2.81 L (3.80-5.40) m/uL Hgb 10.4 L 8.5 L D (11.4-16.0) gm/dL Hct 30.3 L 24.5 L (34.0-46.0) % Assessment and Plan (1) Previous section Current Visit: Yes Status: Acute Code(s): Z98.891 - HISTORY OF UTERINE SCAR FROM PREVIOUS SURGERY SNOMED Code(s): 673723165 (2) Polyhydramnios Current Visit: Yes Status: Acute Code(s): O40.9XX0 - POLYHYDRAMNIOS, UNSP TRIMESTER, NOT APPLICABLE OR UNSP SNOMED Code(s): 69219930 (3) Term Current Visit: Yes Status: Acute Code(s): Z34.80 - ENCOUNTER FOR SUPRVSN OF NORMAL , UNSP TRIMESTER SNOMED Code(s): 43022830 (4) S/P section Current Visit: No Status: Acute Code(s): Z98.891 - HISTORY OF UTERINE SCAR FROM PREVIOUS SURGERY SNOMED Code(s): 084302732 Plan: Continue routine and postoperative care. I would anticipate discharge home tomorrow pending locations. I have strongly encouraged patient ambulating the hallways routinely.
--- NOTE | 2023-12-31 11:26 | P.DS ---
Providers Date of admission: 12/29/23 10:00 Expected date of discharge: 12/31/23 Attending physician: Harsha Bonilla Primary care physician: Stated None - Discharge Diagnosis(es) (1) Previous section Current Visit: Yes Status: Acute (2) Polyhydramnios Current Visit: Yes Status: Acute (3) Term Current Visit: Yes Status: Acute (4) S/P section Current Visit: No Status: Acute Hospital Course: The patient is a 28-year-old 3 para 1011 admitted at 39 and one sevenths weeks by good dating parameters perches admitted for repeat low transverse section. Her was, located only by of polyhydramnios demonstrated in the third trimester with reassuring testing weekly thereafter. Group B strep status is negative. On labor and delivery, all signs reassuring with a category 1 heart rate tracing. She was taken the operating room where she was delivered by section of a viable 7 lbs. 15 oz. baby girl with Apgars of 9 at 1 minute and 9 at 5 minutes. Her and postoperative course was unremarkable with vital signs remained stable and her temperature was afebrile throughout. She was deemed stable for discharge on and postoperative day #2 was discharged home to follow-up in the office in 2 weeks for an incision check and 6 weeks routinely. Discharge i nstructions included calling for any significantly increased bleeding or foul- smelling lochia, significantly increased fever abdominal pain, perineal complaints, breast complaints, incisional complaints, or anything also concerned her. She is additionally instructed to have nothing in the vagina for at least 6 weeks time to include intercourse and to abstain from any heavy lifting over the same period of time. She was last instructed to abstain from driving until off of all pain medications or 2 weeks' time, whichever came first. She understood her instructions and agrees follow up as noted above. Discharge medications included continued vitamins as well as [id number] analgesic pain medications and any other normal home medications. She was given a prescription for Tylenol 3, 1-2 by mouth every 6 hours when necessary pain, #20 dispensed with no refills. Maternal blood type is O+ and rubella status is immune. Discharge hemoglobin and hematocrit were 8.5 and 24.5 respectively. Procedures: #1. Repeat low transverse section Patient Condition at Discharge: Stable Plan - Discharge Summary Discharge Rx Participant: Yes New Discharge Prescriptions: No Action Vit No.179/Iron/Folic [ Tablet] 1 tab PO DAILY Discharge Medication List Vit No.179/Iron/Folic [ Tablet] 1 tab PO DAILY 12/01/23 [History] Follow up Appointment(s)/Referral(s): Harsha Bonilla MD [STAFF PHYSICIAN] - 2 Weeks Discharge Disposition: HOME SELF-CARE
[2023-12-31 12:00] VITALS: BP 150/81; PULSE 64; RESP 16; TEMP 98
== END 2023-12-31 14:57 | disposition home or self-care (01) | DRG 788 ==
LOC: 4FBP 10:00
PROVIDERS: ADMIT Obstetrics & Gynecology; ATTEND Obstetrics & Gynecology
PROC: 10D00Z1 Extraction of Products of Conception, Low, Open Approach (ICD-10-PCS; principal; 2023-12-29 12:00)
DX: O34.211 Maternal care for low transverse scar from previous cesarean delivery (principal); Z3A.39 39 weeks gestation of pregnancy; Z37.0 Single live birth; O40.9XX0 Polyhydramnios, unspecified trimester, not applicable or unspecified; O99.214 Obesity complicating childbirth; E66.01 Morbid (severe) obesity due to excess calories
CPT/HCPCS: 85025; 86850; 86900; 86901